=== PATIENT | male | born 2005 | race Caucasian/White ===

== ENCOUNTER 2024-03-24 10:19 | Emergency (ER) | payer OTHER ==
[2024-03-24 10:36] VITALS: BMI 24.4
[2024-03-24] MEDS ORDERED: ONDANSETRON *ODT* 4 MG TABLET ONE (11:34)
[2024-03-24] MEDS ORDERED: ALBUTEROL SO4 2.5/IPRATROPIUM 0.5 INH SOL 3 ML VIAL.NEB. NEB ONE (11:34)
[2024-03-24] MEDS ORDERED: ACETAMINOPHEN 500 MG TABLET (FP) ONE (11:34)
[2024-03-24] MEDS: ALBUTEROL SO4 2.5/IPRATROPIUM 0.5 INH SOL 3 ML VIAL.NEB. NEB ONE (11:44)
[2024-03-24] MEDS: ACETAMINOPHEN 500 MG TABLET (FP) PO ONE (11:44)
[2024-03-24] MEDS: ONDANSETRON *ODT* 4 MG TABLET SL ONE (11:44)
[2024-03-24 12:51] VITALS: BP 137/77; PULSE 79; RESP 16; TEMP 97.8
[2024-03-24] MEDS ORDERED: AZITHROMYCIN 500 MG TABLET ONE (13:07)
[2024-03-24] MEDS ORDERED: AMOXICILLIN 250 MG CAPSULE ONE (13:07)
[2024-03-24] MEDS: AMOXICILLIN 500 MG CAPSULE (FP) PO ONE (13:13)
[2024-03-24] MEDS: AZITHROMYCIN 500 MG TABLET PO ONE (13:13)
== END 2024-03-24 13:58 | disposition home or self-care (01) ==
LOC: JER 10:19
PROC: 3E0F7GC Introduction of Other Therapeutic Substance into Respiratory Tract, Via Natural or Artificial Opening (ICD-10-PCS; principal; 2024-03-24)
DX: J18.9 Pneumonia, unspecified organism (principal); R50.9 Fever, unspecified; R53.81 Other malaise; R05.9 Cough, unspecified; R11.10 Vomiting, unspecified; R53.83 Other fatigue; R00.0 Tachycardia, unspecified; R06.2 Wheezing; Z20.822 Contact with and (suspected) exposure to COVID-19
CPT/HCPCS: 0241U-QW; 71046-TC-FY; 99284-25; Q0162